=== PATIENT | male | born 1950 | race African-American/Black ===

== ENCOUNTER 2018-08-25 07:30 | Day surgery (SDC) | payer OTHER ==
[2018-08-22 16:48] VITALS: BMI 34.7
[2018-08-25] MEDS ORDERED: oxyCODONE HCL 5 MG TABLET PO PRN ×2 (07:46)
[2018-08-25] MEDS ORDERED: ONDANSETRON 4 MG/2 ML VIAL IVPUSH PRN (07:46)
--- NOTE | 2018-08-25 10:57 | OP ---
Operative Note - Note: Operative Date: 08/25/18 Pre-Operative Diagnosis: Left renal stone Operation: Left ESWL Findings: 5 mm left renal stone Post-Operative Diagnosis: Same as Pre-op Surgeon: Earle Campos Anesthesia: Fractional Estimated Blood Loss (mls): 0 Operative Report Dictated: Yes
[2018-08-25 13:14] VITALS: BP 123/77; PULSE 90; TEMP 98.1
--- NOTE | 2018-10-01 09:43 | OP ---
DATE OF OPERATION: 08/25/2018 PREOPERATIVE DIAGNOSIS: Left renal stone. POSTOPERATIVE DIAGNOSIS: Left renal stone. PROCEDURE PERFORMED: Left extracorporeal shock wave lithotripsy. SURGEON: Monty De Oliveira MD ANESTHESIA: General. DESCRIPTION OF PROCEDURE: The patient was brought to the operating room and placed in the supine position on the operating room table. Ultrasonography and fluoroscopy were performed. A left 5-mm renal stone was identified. Anesthesia and preoperative antibiotics were then administered. Shock wave lithotripsy was then performed. Excellent fragmentation was noted under real time ultrasonography and fluoroscopy. No complications were noted. The patient tolerated the procedure very well. MONTY DE OLIVEIRA M.D. [id number]
== END 2018-08-25 12:15 | disposition home or self-care (01) ==
LOC: JASU-SURG 07:30
PROVIDERS: ATTEND Urology
PROC: 0TF4XZZ Fragmentation in Left Kidney Pelvis, External Approach (ICD-10-PCS; principal; 2018-08-25 09:30)
DX: N20.0 Calculus of kidney (principal); I10 Essential (primary) hypertension; E11.9 Type 2 diabetes mellitus without complications; Z79.84 Long term (current) use of oral hypoglycemic drugs
CPT/HCPCS: 82962